=== PATIENT | female | born 1995 | race Two or more races ===

== ENCOUNTER 2016-08-24 15:43 | Observation (INO) | payer MEDICAID ==
[~2016-08-24] VITALS: Ht 149.9 cm; Wt 67.6 kg
[2016-08-24] MEDS ORDERED: PREN-88 PO (18:11)
== END 2016-08-24 18:30 | disposition home or self-care (01) ==
LOC: L&D 15:43
PROVIDERS: ADMIT Specialist; ATTEND Specialist
DX: O26.853 Spotting complicating pregnancy, third trimester (principal); Z3A.36 36 weeks gestation of pregnancy
CPT/HCPCS: 76815; 76818; 99281; G0378

== ENCOUNTER 2017-02-21 15:02 | Emergency (ER) | payer MEDICAID ==
[~2017-02-21] VITALS: Ht 149.9 cm; Wt 53.0 kg
[~2017-02-21 15:02] MED LIST: PREN-88 PO
[2017-02-21] MEDS ORDERED: ACETAMINOPHEN 325MG TABLET PO PRN (17:45)
[2017-02-21 17:48] LABS: CLARITY URINE CLEAR (CLEAR); COLOR URINE YELLOW (YELLOW); GLUCOSE URINE NEGATIVE (NEGATIVE); KETONES URINE NEGATIVE (NEGATIVE); LEUKOCYTE ESTERASE URINE 1+ (NEGATIVE); NITRITE URINE NEGATIVE (NEGATIVE); OCCULT BLOOD URINE NEGATIVE (NEGATIVE); PH URINE 6.5 (4.5-8.0); PROTEIN URINE NEGATIVE (NEGATIVE); SPECIFIC GRAVITY URINE 1.019 (1.005-1.030); UROBILINOGEN URINE 0.2 E.U./dL (0.2-1.0)
[2017-02-21] MEDS ORDERED: ONDANSETRON 4MG ODT PO ONE (18:15)
[2017-02-21 19:08] LABS: BASOPHILS % 0.2 % (0.0-2.0); EOSINOPHILS % 1.1 % (0.0-5.0); HEMATOCRIT. 37.9 % (36.0-48.0); LYMPHOCYTES % 18.3 % (20.0-50.0); MEAN CORPUSCULAR HEMOGLOBIN 29.3 pg (28.0-32.0); MEAN CORPUSCULAR VOLUME 85.5 fL (81.0-99.0); MONOCYTES % 6.4 % (2.0-8.0); PLATELET 291 x1000/uL (130-400); RED BLOOD CELL COUNT 4.43 mill/uL (4.2-5.4); RED CELL DISTRIBUTION WIDTH 12.8 % (11.6-14.6)
[2017-02-21 19:10] LABS: CARBON DIOXIDE 25 mEq/L (21-32); CHLORIDE 106 mEq/L (98-107)
[2017-02-21 19:31] LABS: B-HCG QUANTITATIVE 66110 mIU/mL (<3)
[2017-02-21 19:45] VITALS: BP 113/75
== END 2017-02-21 19:51 | disposition home or self-care (01) ==
LOC: ER 15:19
DX: O20.0 Threatened abortion (principal); O21.9 Vomiting of pregnancy, unspecified; O23.41 Unspecified infection of urinary tract in pregnancy, first trimester; N39.0 Urinary tract infection, site not specified; J45.909 Unspecified asthma, uncomplicated; Z3A.01 Less than 8 weeks gestation of pregnancy
CPT/HCPCS: 36415; 76801; 76817; 80053; 81001; 84702; 85025; 86886; 86901; 99285; Q0162

== ENCOUNTER 2017-09-08 13:02 | Emergency (ER) | payer MEDICAID ==
[~2017-09-08] VITALS: Ht 149.9 cm; Wt 45.2 kg
[2017-09-08 14:27] LABS: HEMATOCRIT 35.7 % (36.0-48.0); HEMOGLOBIN 12.2 g/dL (12.0-16.0); MEAN CORPUSCULAR HEMOGLOBIN 28.7 pg (28.0-32.0); PLATELET 273 x1000/uL (130-400); RED BLOOD CELL COUNT 4.26 mill/uL (4.2-5.4); RED CELL DISTRIBUTION WIDTH 13.8 % (11.6-14.6)
[2017-09-08 14:32] LABS: CHLORIDE 111 mEq/L (98-107)
[2017-09-08 14:49] LABS: B-HCG QUANTITATIVE < 1 mIU/mL (<3)
[2017-09-08 15:30] VITALS: BP 121/71
== END 2017-09-08 15:34 | disposition home or self-care (01) ==
LOC: ER 14:30
DX: N93.9 Abnormal uterine and vaginal bleeding, unspecified (principal); F17.200 Nicotine dependence, unspecified, uncomplicated
CPT/HCPCS: 36415; 80048; 81025; 84702; 85027; 86850; 86900; 99284